=== PATIENT | female | born 1995 | race African-American/Black ===

== ENCOUNTER 2024-01-31 07:44 | Outpatient (CLI) | payer OTHER ==
--- NOTE | 2024-01-31 11:06 | XRAY Report ---
PROCEDURE: Foot 3+V LT (Weight Bearing) INDICATIONS: FOOT PAIN, LEFT TECHNIQUE: 3 views of the foot were acquired. COMPARISON: None. FINDINGS: Bones: There is a nondisplaced fracture involving the distal aspect of the fifth middle phalanx. The fifth middle and distal phalanx appear fused, a normal variant. No suspicious bony lesions. Soft tissues: No tibiotalar joint effusion. Achilles tendon appears normal. IMPRESSION: Nondisplaced fracture at the distal aspect of the fifth middle fundus. Reviewed by: Brett Gordon MD on 01/31/2024 10:04 AM VALERIE Approved by: Brett Gordon MD on 01/31/2024 10:04 AM VALERIE Station ID: [id number]
== END 2024-01-31 07:45 | disposition home or self-care (01) ==
LOC: DI.N 07:44
PROVIDERS: ATTEND Physician Assistant
DX: S92.525A Nondisplaced fracture of middle phalanx of left lesser toe(s), initial encounter for closed fracture (principal)